=== PATIENT | female | born 1985 | race Caucasian/White ===

== ENCOUNTER 2022-07-28 12:43 | Emergency (ER) | payer OTHER, SELFPAY ==
[2022-07-28 12:45] VITALS: BP 127/77; PULSE 94; RESP 16; TEMP 36.4; O2SAT 98; BMI 27.3
--- NOTE | 2022-07-28 12:55 | RAD_ITS ---
EXAM: XR RIGHT ANKLE COMPLETE, 3 OR MORE VIEWS CLINICAL INDICATION: INJURY TECHNIQUE: Frontal, lateral and oblique views of the right ankle. This report was created using [employer] report generation technology. COMPARISON: None. FINDINGS: BONES/JOINTS: No acute abnormality. SOFT TISSUES: Prominent lateral soft tissue swelling. No radiopaque foreign body. RAD/Ankle min 3 Views IMPRESSION: Soft tissue swelling without acute bone or joint abnormality. Electronically Signed: Lio Murphy MD at 13:15 EST ,
--- NOTE | 2022-07-28 13:34 | ED.VIS.LOWEX ---
HPI History of Present Illness Chief Complaint: Lower Extremity Injury Informant: patient Narrative Narrative: 37-year-old female states that she jumped last night when she came down and sustained a inversion injury to the right foot and ankle. She notes swelling and pain both medial and lateral of the ankle. She denies any knee pain. She denies any other injuries. [facility] Medical History no medical history no medical history Home Medications Vitamin Tablet 1 tab PO DAILY 03/29/15 [History Last Taken 03/28/15] Allergy/AdvReac Type Severity Reaction Status Date / Time No Known Allergies Allergy Verified 07/28/22 12:44 Surgical History no surgical history no surgical history Social History (Updated 07/28/22 @ 13:[address] Alex Wiggins, DO) Smoking Status: Never smoker substance use type: does not use ROS ROS ED Constitutional Constitutional ED: Denies chills or weight loss Eyes Eyes: Denies change in vision or diplopia ENT ENT ED: Denies ear pain, rhinorrhea or sore throat Cardiovascular Cardiovascular: Denies chest pain, orthopnea, palpitations or racing heartbeat Respiratory/Chest Respiratory/Chest: Denies cough, dyspnea or orthopnea Gastrointestinal Gastrointestinal: Denies abdominal pain, diarrhea, nausea or vomiting Genitourinary Genitourinary ED: Denies dysuria, hematuria or urinary frequency Musculoskeletal Musculoskeletal: Denies arthralgias or myalgias Integumentary Denies abscess or rash Neurologic Neurologic: Denies headache(s) or weakness Psychiatric Psychiatric: Denies anxiety, depression, suicidal ideation or suicidal thoughts Endocrine Endocrinology: Denies polydipsia, polyphagia or polyuria Allergic/Immunologic Allergic/Immunologic ED: Denies mouth swelling, tongue swelling or urticaria EXAM Physical Exam Const Vital Signs: 07/28/22 12:45 Temperature 97.6 F L Temperature Source Temporal Pulse Rate 94 Respiratory Rate 16 Blood Pressure 127/77 H Blood Pressure Mean 93 Pulse Ox 98 Oxygen Delivery Method Room Air Positive well nourished and well developed General Appearance ED: well developed HEENT Reports normocephalic, head/scalp atraumatic and moist mucous membranes Eyes PERRL and EOMs intact bilaterally Neck no lymphadenopathy, supple and no JVD Resp normal respiratory effort and clear to auscultation bilaterally Cardio regular rate, regular rhythm and no murmurs GI normal to inspection, nondistended, normoactive bowel sounds and non-tender Palpation: soft Back/Spine no CVA tenderness and normal ROM Extremity Extremity Narrative: There is swelling and ecchymosis over the lateral malleolus. No fifth metatarsal pain. No fibular head pain. There is tenderness over the medial malleolus without significant swelling. The Achilles palpates and functionally is intact. General Extremety ED: Negative for edema General Extremity: Negative for edema Neuro oriented x3 and CN's II-XII intact bilaterally Sensorium / Orientation: alert Motor Exam: strength 5/5 throughout Psych mental status grossly normal Mood & Affect: Negative for depressed or tearful Skin no rashes or lesions noted and no wounds MDM MDM MDM Narrative Medical decision making narrative: My interpretation of the plain films of the right ankle is no acute fracture or soft tissue swelling noted. Patient will be placed in Deni wrap. She has crutches already at home. Return if worsening or concerns follow-up 10 to 14 days if not improved Radiography Diagnostic Testing: Clinical Impression(s) from Imaging Studies Ankle X-Ray 07/28/22 12:55 IMPRESSION: Soft tissue swelling without acute bone or joint abnormality. Electronically Signed: Lio Murphy MD at 13:15 EST Reading Location ID and State: [address] [place] [address] Tel , Service support , Discharge Plan Triage Chief Complaint: Lower Extremity Injury ED Provider: Alex Wiggins Dx/Rx/DC Orders Clinical Impression: Right ankle sprain, Acute right ankle pain Instructions: ED Ankle Sprain (Adult) Prescriptions: No Action Vitamin Tablet 1 tab PO DAILY Primary Care Provider: Care Physician,No Primary Referrals: Jordon Powers MD [Med Staff - Active Staff] - 10-14 Days if not better Care Physician,No Primary [Primary Care Provider] - Disposition Disposition: Home, Self Care
[2022-07-28 13:50] VITALS: BP 124/69; PULSE 72; RESP 15; O2SAT 98
== END 2022-07-28 13:51 | disposition home or self-care (01) ==
PROVIDERS: Emergency Provider Emergency Medicine; Visit Provider Emergency Medicine
DX: S93.401A Sprain of unspecified ligament of right ankle, initial encounter (principal); M25.571 Pain in right ankle and joints of right foot; W17.89XA Other fall from one level to another, initial encounter
CPT/HCPCS: 73610; 99282